=== PATIENT | female | born 1970 | race African-American/Black ===

== ENCOUNTER 2016-06-08 08:04 | Outpatient (CLI) | payer BC ==
--- NOTE | 2016-06-08 09:24 | Mammography Report ---
RIGHT DIGITAL DIAGNOSTIC MAMMOGRAM and RIGHT BREAST ULTRASOUND: 06/08/16 08:04:00 CLINICAL: Recalled for asymmetry. COMPARISON:02/10/16 screening FINDINGS: ML and spot compression MLO and CC views were performed. Satisfactory effacement of the asymmetry on the MLO spot but a persistent asymmetry on the CC spot. The lateral view is negative. Ultrasound of the inner right breast was performed and demonstrated normal fibroglandular structures with no mass, cyst or shadowing. IMPRESSION: A probably benign asymmetry with a negative ultrasound. BI-RADS CATEGORY: 3 - - Probably Benign RECOMMENDATION: Six month followup right mammogram and ultrasound if needed. ACR BI-RADS MAMMOGRAPHIC CODES: 0 = Needs additional imaging evaluation; 1 = Negative; 2 = Benign; 3 = Probably benign; 4 = Suspicious; 5 = Malignant; 6 = Known biopsy-proven malignancy COMMENT: 1. Dense breast tissue, i.e., adenosis, fibrocystic changes, etc., may obscure an underlying neoplasm. 2. Approximately 10% of cancers are not detected with mammography. 3. A negative mammography report should not delay biopsy if a clinically suspicious mass is present. COMMENT: Patient follow-up letters are generated via our [employer] application.
== END 2016-06-08 08:05 | disposition home or self-care (01) ==
LOC: SPVWC 08:04
PROVIDERS: ATTEND Internal Medicine Geriatric Medicine
DX: R92.8 Other abnormal and inconclusive findings on diagnostic imaging of breast (principal)
CPT/HCPCS: 76642; G0206

== ENCOUNTER 2016-11-26 11:26 | Outpatient (CLI) | payer BC ==
--- NOTE | 2016-11-26 12:33 | Mammography Report ---
RIGHT DIGITAL DIAGNOSTIC MAMMOGRAM with CAD: 11/26/16 11:26:00 CLINICAL: Six-month followup for an asymmetry on the CC view. COMPARISON:06/08/16 and 02/10/16 FINDINGS: The breast is heterogeneously dense, which may obscure small masses. The previously described parenchymal asymmetry has resolved. No mass, architectural distortion or suspicious calcifications. IMPRESSION: Negative mammogram BI-RADS CATEGORY: 1 - - Negative RECOMMENDATION: Routine mammographic screening. ACR BI-RADS MAMMOGRAPHIC CODES: 0 = Needs additional imaging evaluation; 1 = Negative; 2 = Benign; 3 = Probably benign; 4 = Suspicious; 5 = Malignant; 6 = Known biopsy-proven malignancy COMMENT: 1. Dense breast tissue, i.e., adenosis, fibrocystic changes, etc., may obscure an underlying neoplasm. 2. Approximately 10% of cancers are not detected with mammography. 3. A negative mammography report should not delay biopsy if a clinically suspicious mass is present. COMMENT: Patient follow-up letters are generated by our [employer] application.
== END 2016-11-26 11:27 | disposition home or self-care (01) ==
LOC: SPVWC 11:26
PROVIDERS: ATTEND Internal Medicine Geriatric Medicine
DX: R92.8 Other abnormal and inconclusive findings on diagnostic imaging of breast (principal)
CPT/HCPCS: 77066; G0204